=== PATIENT | male | born 1960 | race Caucasian/White ===

== ENCOUNTER 2019-05-21 16:42 | Emergency (ER) | payer MEDICAID, MEDICARE ==
--- NOTE | 2019-05-21 17:19 | EDM.PDOC ---
ED HPI GENERAL MEDICAL PROBLEM - General Chief Complaint: General Stated Complaint: BLEEDING FROM PROCEDURE Time Seen by Provider: 05/21/19 17:00 Source of Information: Reports: Patient History Limitations: Reports: No Limitations - History of Present Illness INITIAL COMMENTS - FREE TEXT/NARRATIVE: 59-year-old male presents to the ED from the dialysis suite with bleeding from right anterior chest wound. Port-A-Cath removed from this site 2 weeks ago and the wound is being pa on a fairly regular basis by Dr. Gonzalez.he was packed this morning apparently but in the dialysis run he was noted to continue to be oozing from the anterior chest wound soaking his shirt with blood.Dr gonzalez apparently is not available to have a look at the wound was thus sent to the ED for evaluation. Onset: Today Onset Date: 05/21/19 Onset Time: 10:00 Duration: Hour(s): Location: Reports: Chest (Right upper anterior chest wall where he had a Port-A- Cath removed 2 weeks ago. He states at least this is what they call it that they were using it for dialysis treatment and I suspect it may have been a Broviac catheter.) Quality: Reports: Other Severity: Moderate (Persistent oozing and bleeding from right upper anterior chest wound.) Improves with: Reports: None Worsens with: Reports: None Context: Denies: Activity, Exercise, Lifting, Sick Contact, Trauma, Other Associated Symptoms: Reports: No Other Symptoms, Other (Just finished his dialysis run.) Right Upper Chest Pain Score (Numeric/FACES): 2 - Related Data Allergies Allergy/AdvReac Type Severity Reaction Status Date / Time clindamycin Allergy Cannot Verified 04/23/19 08:17 Remember erythromycin base Allergy Cannot Verified 04/23/19 08:17 Remember phenytoin Allergy Cannot Verified 04/23/19 08:17 Remember Home Meds: Home Meds . [Unable to Verify Home Med List] 05/21/19 [History] Past Medical History HEENT History: Reports: Other (See Below) Other HEENT History: has dentures Cardiovascular History: Reports: High Cholesterol, Hypertension Respiratory History: Reports: Sleep Apnea Gastrointestinal History: Reports: None Genitourinary History: Reports: Dialysis (Has been a dialysis patient for about a year. 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 Musculoskeletal History: Reports: None Neurological History: Reports: Neuropathy, Peripheral Psychiatric History: Reports: None Endocrine/Metabolic History: Reports: Diabetes, Type II, Hypothyroidism, Other ( See Below) Other Endocrine/Metabolic History: thyroid nodule Hematologic History: Reports: None Immunologic History: Reports: None Oncologic (Cancer) History: Reports: None Dermatologic History: Reports: None - Past Surgical History HEENT Surgical History: Reports: Cataract Surgery Cardiovascular Surgical History: Reports: None Respiratory Surgical History: Reports: None GI Surgical History: Reports: None Male Surgical History: Reports: None Neurological Surgical History: Reports: Other (See Below) Other Neurological Surgeries/Procedures: brain surgery for aneurysm, 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 Denies: Fever, Chills HEENT: Reports: Glasses (Wears glasses for reading.) Respiratory: Reports: Shortness of Breath, Cough (Daily smoker.). Denies: Wheezing, Pleuritic Chest Pain (On exertion), Sputum (Occasional cough) Cardiovascular: Reports: Blood Pressure Problem, Dyspnea on Exertion ( Chronically), Edema (Occasional edema lower extremities). Denies: Chest Pain, Claudication, Lightheadedness, Orthopnea Endocrine: Reports: Fatigue GI/Abdominal: Reports: Decreased Appetite : Reports: Other (Makes a few drops of urine daily.) Musculoskeletal: Reports: Back Pain Skin: Reports: Pallor (Chronic anemia.), Other Neurological: Reports: No Symptoms Psychiatric: Reports: No Symptoms ED EXAM, GENERAL - Physical Exam Exam: See Below Exam Limited By: No Limitations General Appearance: Alert, WD/WN, No Apparent Distress, Other (Pallid and sallow in color. Vital signs show temperature is 36.8 pulse 73 and sinus respiratory of 20 BP elevated 161/95. Sats are 100% on room air.) Eye Exam: Bilateral Eye: Other (Mild bilateral blood flow pallor.) Throat/Mouth: Normal Inspection, Normal Lips, Normal Oropharynx, Other Head: Atraumatic, Normocephalic (Tongue is mildly dry and coated.) Neck: Normal Inspection, Supple, Non-Tender, Full Range of Motion. No: Carotid Bruit, Lymphadenopathy (L), Lymphadenopathy (R) Respiratory/Chest: Respiratory Distress (Mild tachypnea.), Decreased Breath Sounds (Breath sounds are diminished in both lower lung gentile posterior 20%.), Wheezing (Occasional expiratory wheeze.), Other (Wound right upper anterior chest at site of recent removal of the Broviac catheter Port-A-Cath.. This was done 2 weeks ago but it was being utilized for dialysis suggesting it was a Broviac catheter. Wound has been packed on an every other day basis by Dr. Gonzalez. Currently holding a pressure dressing on the area but it is actively bleeding and the wound is filled with clot. I removed the clot and I packed it with clots and it seemed to bring the bleeding under proper control.) Cardiovascular: Regular Rate, Rhythm, No Edema, No Gallop, No JVD, No Murmur. No: Normal Peripheral Pulses Peripheral Pulses: 2+: Posterior Tibial (L), Posterior Tibial (R), Dorsalis Pedis (L), Dorsalis Pedis (R) Neurological: Alert, Oriented, CN II-XII Intact, Normal Cognition Psychiatric: Normal Affect, Normal Mood Skin Exam: Warm, Dry, Intact, Pallor, Other Course - Vital Signs Text/Narrative:: 59-year-old male presents to the ED from the dialysis suite due to persistent bleeding from a right upper anterior chest wound. Apparently a Port-A-Cath for Broviac catheter was removed from this area probed 2 weeks ago surgeon. Impacted be other day to allow to heal in by secondary intention. Was noted to be bleeding persistently throughout his dialysis run soaking his T-shirt. Therefore sent to the ED for further evaluation in this regard. On inspection he has approximately a 2.5 cm wound to the right upper anterior chest overlying the chest wall just below the clavicle. Clot was removed from the wound. I packed it with quick clot. I reviewed the wound 15 minutes later and it appeared to have stopped bleeding. Patient did experience mild to moderate mild burning discomfort from the quick clot but he states it's tolerable. He will have the duodenum dressing placed over top of this and be discharged to home. Follow-up with Dr. Gonzalez as planned. Return to ED sooner if there is further bleeding Last Recorded V/S: Last Vital Signs Temp 36.8 C 05/21/19 17:00 Pulse 73 05/21/19 17:00 Resp 20 05/21/19 17:00 BP 161/95 H 05/21/19 17:00 Pulse Ox 100 05/21/19 17:00 Departure - Departure Time of Disposition: 17:19 Disposition: Home, Self-Care 01 Condition: Fair Clinical Impression: Encounter for evaluation of wound - Discharge Information *PRESCRIPTION DRUG MONITORING PROGRAM REVIEWED*: Not Applicable *COPY OF PRESCRIPTION DRUG MONITORING REPORT IN PATIENT AIDA: Not Applicable Instructions: Wound Care, Adult Forms: ED Department Discharge Additional Instructions: Evaluation the emergency room today in regards to persistent oozing and bleeding from right upper anterior chest wall wound. Apparently either Broviac catheter or Port-A-Cath was removed from this area 2 weeks ago and the wound is been slowly healing in by secondary intention but is being packed on a every other day basis. Joshua this morning did not seem to work well and you continue to ooze and bleed from the wound especially noted during dialysis run today. Packing and clot was removed from the wound and I packed it with chronic clot and it seemed to be holding and stop the bleeding. Dressing is to remain in place until follow-up with Dr. Gonzalez as planned.
== END 2019-05-21 17:45 | disposition home or self-care (01) ==
LOC: JD.ED 16:42
DX: T82.838A Hemorrhage due to vascular prosthetic devices, implants and grafts, initial encounter (principal); I10 Essential (primary) hypertension; E11.42 Type 2 diabetes mellitus with diabetic polyneuropathy; E11.22 Type 2 diabetes mellitus with diabetic chronic kidney disease; I12.0 Hypertensive chronic kidney disease with stage 5 chronic kidney disease or end stage renal disease; N18.6 End stage renal disease; F17.210 Nicotine dependence, cigarettes, uncomplicated; Z88.1 Allergy status to other antibiotic agents; Z88.8 Allergy status to other drugs, medicaments and biological substances
CPT/HCPCS: 99282; 99283